=== PATIENT | female | born 1965 | race Caucasian/White ===

== ENCOUNTER 2016-11-16 22:53 | Emergency (ER) | payer OTHER ==
[2016-11-16 22:58] VITALS: BP 141/73; PULSE 73; TEMP 97.6; BMI 51.3
--- NOTE | 2016-11-16 23:42 | PDOC ---
History of Present Illness - General Chief Complaint: Migraine Headache Stated Complaint: MIGRAINE Time Seen by Provider: 11/16/16 23:34 History Source: Patient, Family (Daughter) Exam Limitations: Language Barrier - History of Present Illness Initial Comments: 11/17/16 00:41 51yo Female patient presents to ED c/o headache and blood to left eye, which began at 6am yesterday morning. She states she normally takes Tylenol for relief. Patient denies fever, n/v/d CP, Abd pain, diff breathing, rash, coughing , constipation, photophobia, neck pain, injury, or any other complaints at this time. Patient is concerned with blood to left eye. LNMP: Menopause. Severity: Yes: mild Associated Symptoms: denies: denies symptoms, confusion, fatigue, fever/chills, insomnia, loss of consciousness, muscle spasms, nausea/vomiting, numbness in legs/feet, paresthesia, ringing in ears, seizures, sleepy, slurred speech, tingling in legs/feet, trouble walking, vision changes, weakness, other Past History - Travel Close contact w/someone who was outside of country & ill: No - Past Medical History Allergies/Adverse Reactions: Allergies Allergy/AdvReac Type Severity Reaction Status Date / Time aspirin Allergy Mild Swelling Verified 11/16/16 22:55 Penicillins Allergy Mild Swelling Verified 11/16/16 22:55 Home Medications: Ambulatory Orders Butalb/Acetaminophen/Caffeine [Fioricet 50-300-40 mg Capsule] 1 - 2 each PO Q4H PRN #18 capsule 11/17/16 Thyroid Disease: No - Immunization History Immunization Up to Date: Yes - Psycho/Social/Smoking Cessation Hx Anxiety: No Suicidal Ideation: No Smoking Status: No Smoking History: Never smoked Have you smoked in the past 12 months: No Number of Cigarettes Smoked Daily: 0 Information on smoking cessation initiated: No Hx Alcohol Use: No Drug/Substance Use Hx: No Substance Use Type: None Hx Substance Use Treatment: No Neuro Specific PMHX - Complaint Specific PMHX Glaucoma: No Herniated Disk: No Laminectomy: No Migraine: Yes Multiple Sclerosis: No Neuropathy: No TIA: No Review of Systems - Review of Systems Able to Perform ROS?: Yes Is the patient limited Korean proficient: No Constitutional: No: Chills, Fever HEENTM: No: Eye Pain, Blurred Vision, Double Vision, Nose Congestion Respiratory: No: Cough, Orthopnea, Shortness of Breath, Stridor, Wheezing Cardiac (ROS): No: Chest Pain, Edema, Lightheadedness, Palpitations ABD/GI: No: Constipated, Diarrhea, Nausea, Poor Appetite, Poor Fluid Intake, Rectal Bleeding, Vomiting : No: Burning, Dysuria, Frequency, Flank Pain, Hematuria, Pain Musculoskeletal: No: Back Pain Integumentary: No: Dryness, Erythema, Rash Neurological: Yes: Headache. No: Numbness, Paresthesia, Seizure, Tingling, Tremors, Weakness, Unsteady Gait, Ataxia All Other Systems: Reviewed and Negative *Physical Exam - Vital Signs Last Vital Signs Temp Pulse Resp BP Pulse Ox 97.6 F 73 14 141/73 100 11/16/16 22:56 11/16/16 22:56 11/16/16 22:56 11/16/16 22:56 11/16/16 22:56 - Physical Exam General Appearance: Yes: Nourished, Appropriately Dressed. No: Apparent Distress, Mild Distress, Moderate Distress HEENT: positive: EOMI, LISET, Normal ENT Inspection, Normal Voice, Symmetrical, TMs Normal, Pharynx Normal, Other (patch of blood noted to left eye. No active bleeding.). negative: Nasal Congestion, Rhinorrhea, Sinus Tenderness, Orbits, TM Bulging, TM Dull, TM Erythema Neck: positive: Trachea midline, Supple. negative: Decreased range of motion, Lymphadenopathy (R), Lymphadenopathy (L) Respiratory/Chest: positive: Lungs Clear, Normal Breath Sounds. negative: Respiratory Distress, Accessory Muscle Use, Labored Respiration, Rapid RR Cardiovascular: positive: Regular Rhythm, Regular Rate Gastrointestinal/Abdominal: positive: Normal Bowel Sounds, Flat. negative: Distended, Guarding, Rebound, Tenderness Musculoskeletal: positive: Normal Inspection. negative: CVA Tenderness Extremity: positive: Normal Capillary Refill, Normal Inspection, Normal Range of Motion, Pelvis Stable. negative: Pedal Edema, Swelling, Calf Tenderness Integumentary: positive: Normal Color, Dry, Warm. negative: Erythema, Hives, Rash, Swelling Neurologic: positive: repairer hairspring II-XII NML intact, Fully Oriented, Normal Response, Motor Strength 5/5 ED Treatment Course - LABORATORY CBC & Chemistry Diagram: 11/16/16 23:55 11/16/16 23:55 *DC/Admit/Observation/Transfer Diagnosis at time of Disposition: Subconjunctival bleed Qualifiers: Laterality: left Qualified Code(s): H11.32 - Conjunctival hemorrhage, left eye Head ache Qualifiers: Headache type: tension-type Headache chronicity pattern: episodic headache Intractability: not intractable Qualified Code(s): G44.219 - Episodic tension- type headache, not intractable - Discharge Dispostion Disposition: HOME Condition at time of disposition: Improved Admit: No - Prescriptions Prescriptions: Butalb/Acetaminophen/Caffeine [Fioricet 50-300-40 mg Capsule] 1 - 2 each PO Q4H PRN #18 capsule PRN Reason: Severe Headache - Referrals Referrals: Sharona Cerda [Primary Care Provider] - - Patient Instructions Printed Discharge Instructions: DI for Headache, DI for Subconjunctival Hemorrhage Additional Instructions: FOLLOW UP WITH DR. ROBISON (OPHTHALMOLOGY) REGARDING BLOOD IN EYE. THIS IS A BENIGN CONDITION AND WILL GO AWAY ON ITS OWN. TRY NOT TO COUGH, SNEEZE, BEAR- DOWN WHEN USING BATHROOM, OR ANY THING THAT WILL CAUSE PRESSURE TO EYES. RETURN IF SYMPTOMS WORSEN OR ANY CONCERNS FOR FURTHER EVALUATION. FIORICET FOR HEADACHE PRESCRIBED. Print Language: IRISH
[2016-11-17 00:14] LABS: BASOPHIL 0.7 % (0-2.0); EOSINOPHIL 2.1 % (0-4.5); MCH 27.5 pg (25.7-33.7); MCHC 33.7 g/dl (32.0-36.0); MEAN CELL VOLUME 81.6 fl (80-96); MEAN PLT VOLUME 8.7 fl (7.5-11.1); NEUTROPHILS 61.8 % (42.8-82.8); PLATELET COUNT 194 K/MM3 (134-434); RDW 14.1 % (11.6-15.6); WHITE BLOOD COUNT 6.6 K/mm3 (4.0-10.0)
[2016-11-17 00:28] LABS: URINE APPEARANCE CLEAR; URINE BILIRUBIN NEGATIVE (NEGATIVE); URINE BLOOD NEGATIVE (NEGATIVE); URINE COLOR STRAW; URINE GLUCOSE (UA) NEGATIVE (NEGATIVE); URINE KETONE NEGATIVE (NEGATIVE); URINE LEUK ESTERASE NEGATIVE (NEGATIVE); URINE NITRITE NEGATIVE (NEGATIVE); URINE PROTEIN NEGATIVE (NEGATIVE); URINE UROBILINOGEN NEGATIVE E.U./dl (0.2-1.0)
[2016-11-17 00:43] LABS: CALCIUM 8.5 mg/dL (8.5-10.1); CREATININE 1.1 mg/dL (0.55-1.02)
== END 2016-11-17 02:09 | disposition home or self-care (01) ==
LOC: JER 22:53
DX: G44.219 Episodic tension-type headache, not intractable (principal); H11.32 Conjunctival hemorrhage, left eye
CPT/HCPCS: 36415; 70450-TC; 80048; 81003; 84703; 85025; 99281-25

== ENCOUNTER 2017-01-20 08:27 | Day surgery (SDC) | payer OTHER ==
[2017-01-19 14:13] VITALS: BMI 27.4
[2017-01-20] MEDS ORDERED: LIDOCAINE HCL/PF 2% SDV 5ML VIAL ONE (09:46)
[2017-01-20] MEDS ORDERED: PROPOFOL 20 ML ONE ×3 (09:47)
[2017-01-20 10:36] VITALS: TEMP 97.4
[2017-01-20 11:32] VITALS: BP 118/60; PULSE 78
== END 2017-01-20 11:20 | disposition home or self-care (01) ==
LOC: JASU-ENDO 08:27
PROVIDERS: ATTEND Internal Medicine Gastroenterology
PROC: 0DJD8ZZ Inspection of Lower Intestinal Tract, Via Natural or Artificial Opening Endoscopic (ICD-10-PCS; principal; 2017-01-20 08:30)
DX: Z12.11 Encounter for screening for malignant neoplasm of colon (principal)

== ENCOUNTER 2019-11-07 11:24 | Emergency (ER) | payer OTHER ==
[2019-11-07 11:46] VITALS: BP 145/63; PULSE 75; TEMP 97.8; BMI 26.6
[2019-11-07] MEDS ORDERED: METOCLOPRAMIDE HCL INJECTION 10 MG/2 ML VIAL IVPB ONE (12:09)
[2019-11-07] MEDS ORDERED: SODIUM CHLORIDE 1,000 ML IV STA (12:10)
[2019-11-07] MEDS ORDERED: SUMAtriptan SUCCINATE 25 MG TABLET PO ONE (12:12)
--- NOTE | 2019-11-07 12:15 | PDOC ---
History of Present Illness - General History Source: Patient Exam Limitations: Clinical Condition - History of Present Illness Initial Comments: 11/07/19 12:14 Patient with past medical history of hypertension and migraines presented with complaint of 3-day history of elevated blood pressure and headache with blurry vision for 3 days. Patient reports she has been forgetting to take her blood pressure medication. Patient is supposed to be taking amlodipine 5 mg daily. Patient report taking blood pressure medication this morning. Patient reported blood pressure was 170s over 110s prior to taking medication. Denies nausea, vomiting, dizziness, chest pain, shortness of breath, fever or chills. Report taking OTC Tylenol 3 tablets for headache 3 hours ago. Denies any other symptoms Timing/Duration: reports: other (3 days) Associated Symptoms: reports: denies symptoms. denies: confusion, fever/chills , loss of consciousness, seizures, sleepy, slurred speech, weakness <Phoenix Yarbrough - Last Filed: 11/07/19 14:17> <Toni Conn - Last Filed: 11/07/19 16:39> - General Chief Complaint: Headache Stated Complaint: HYPERTENSION Time Seen by Provider: 11/07/19 11:59 Past History - Past Medical History Anemia: No Asthma: No Cancer: No Cardiac Disorders: No CVA: No COPD: No CHF: No Dementia: No Diabetes: No GI Disorders: No Disorders: No HTN: Yes Hypercholesterolemia: No Liver Disease: No Seizures: No Thyroid Disease: No - Surgical History Abdominal Surgery: No Appendectomy: No Cardiac Surgery: No Cholecystectomy: No Lung Surgery: No Neurologic Surgery: No Orthopedic Surgery: No - Immunization History Immunization Up to Date: Yes - Psycho Social/Smoking Cessation Hx Smoking Status: No Smoking History: Never smoked Have you smoked in the past 12 months: No Number of Cigarettes Smoked Daily: 0 Hx Alcohol Use: No Drug/Substance Use Hx: No Substance Use Type: None Hx Substance Use Treatment: No <Phoenix Yarbrough - Last Filed: 11/07/19 14:17> <Toni Conn - Last Filed: 11/07/19 16:39> - Past Medical History Allergies/Adverse Reactions: Allergies Allergy/AdvReac Type Severity Reaction Status Date / Time aspirin Allergy Mild Swelling Verified 11/07/19 11:43 Penicillins Allergy Mild Swelling Verified 11/07/19 11:43 Home Medications: Ambulatory Orders Acetaminophen [Tylenol] 325 mg PO PRN 01/20/17 Butalb/Acetaminophen/Caffeine [Fioricet 50-300-40 mg Capsule] 1 each PO Q6H PRN #20 capsule 11/07/19 Neuro Specific PMHX - Complaint Specific PMHX Glaucoma: No Herniated Disk: No Laminectomy: No Migraine: Yes Multiple Sclerosis: No TIA: No <Phoenix Yarbrough - Last Filed: 11/07/19 14:17> Review of Systems - Review of Systems Able to Perform ROS?: Yes Is the patient limited [place] proficient: No Constitutional: No: Chills, Fever, Malaise HEENTM: No: Symptoms Reported, See HPI, Eye Pain, Blurred Vision, Tearing, Recent change in vision, Double Vision, Cataracts, Ear Pain, Ocular Prothesis, Ear Discharge, Nose Pain, Nose Congestion, Tinnitus, Nose Bleeding, Hearing Loss , Throat Pain, Throat Swelling, Mouth Pain, Dental Problems, Difficulty Swallowing, Mouth Swelling, Other Respiratory: No: Symptoms reported, See HPI, Cough, Orthopnea, Shortness of Breath, SOB with Exertion, SOB at Rest, Stridor, Wheezing, Productive cough, Hemoptysis, Other Cardiac (ROS): No: Symptoms Reported, See HPI, Chest Pain, Edema, Irregular Heart Rate, Lightheadedness, Palpitations, Syncope, Chest Tightness, Other ABD/GI: No: Symptoms Reported, See HPI, Abd. Pain w/ defecation, Blood Streaked Bowels, Constipated, Diarrhea, Difficulty Swallowing, Nausea, Poor Appetite, Rectal Bleeding, Vomiting, Abdominal cramping : No: Frequency, Incontinence, Urgency Musculoskeletal: No: Symptoms Reported, Muscle Pain Integumentary: No: Symptoms Reported Neurological: Yes: Symptoms reported, See HPI, Headache. No: Pre-Existing Deficit, Tingling, Weakness, Unsteady Gait, Dizziness All Other Systems: Reviewed and Negative <Phoenix Yarbrough - Last Filed: 11/07/19 14:17> *Physical Exam - Vital Signs Last Vital Signs Temp Pulse Resp BP Pulse Ox 97.8 F 75 18 145/63 100 11/07/19 11:43 11/07/19 11:43 11/07/19 11:43 11/07/19 11:43 11/07/19 11:43 - Physical Exam 11/07/19 12:43 GENERAL: Well developed, well nourished. Awake and alert. No acute distress. HEENT: Normocephalic, atraumatic. PERRLA, EOMI. No conjunctival pallor. Sclera are non- icteric. Moist mucous membranes. Oropharynx is clear. NECK: Supple. Full ROM. No JVD. Carotid pulses 2+ and symmetric, without bruits. No thyromegaly. No lymphadenopathy. CARDIOVASCULAR: Regular rate and rhythm. No murmurs, rubs, or gallops. Distal pulses are 2+ and symmetric. PULMONARY: No evidence of respiratory distress. Lungs clear to auscultation bilaterally. No wheezing, rales or rhonchi. ABDOMINAL: Soft. Non-tender. Non-distended. No rebound or guarding. No organomegaly. Normoactive bowel sounds. MUSCULOSKELETAL Normal range of motion at all joints. SKIN: Warm and dry. Normal capillary refill. No rashes. No jaundice. NEUROLOGICAL: Alert, awake, appropriate. Cranial nerves 2-12 intact. No deficits to light touch in face, upper extremities and lower extremities. No motor deficits in the in face, upper extremities and lower extremities. Normoreflexic in the upper and lower extremities. Normal speech. Gait is normal without ataxia. PSYCHIATRIC: Cooperative. Good eye contact. Appropriate mood and affect. General Appearance: Yes: Nourished, Appropriately Dressed. No: Apparent Distress <Phoenix Yarbrough - Last Filed: 11/07/19 14:17> - Vital Signs Last Vital Signs Temp Pulse Resp BP Pulse Ox 97.8 F 75 18 145/63 100 11/07/19 11:43 11/07/19 11:43 11/07/19 11:43 11/07/19 11:43 11/07/19 11:43 <Toni Conn - Last Filed: 11/07/19 16:39> ED Treatment Course - Medications Given in the ED: ED Medications Discontinued Medications Generic Name Dose Route Start Last Admin Trade Name Freq PRN Reason Stop Dose Admin Diphenhydramine HCl 25 mg 11/07/19 12:09 11/07/19 13:01 Benadryl Injection - IVPB 11/07/19 12:10 25 mg ONCE ONE Administration Sodium Chloride 1,000 mls @ 1,000 mls/hr 11/07/19 12:10 11/07/19 13:01 Normal Saline - IV 11/07/19 13:09 1,000 mls/hr ASDIR STA Administration Metoclopramide HCl 10 mg 11/07/19 12:09 11/07/19 13:01 Reglan Injection - IVPB 11/07/19 12:10 10 mg ONCE ONE Administration Sumatriptan Succinate 25 mg 11/07/19 12:12 11/07/19 13:48 Imitrex - PO 11/07/19 12:13 25 mg ONCE ONE Administration <Toni Conn - Last Filed: 11/07/19 16:39> Medical Decision Making - Medical Decision Making 11/07/19 12:41 Patient with past medical history of hypertension and migraines presented with complaint of 3-day history of elevated blood pressure and headache with blurry vision for 3 days. Patient reports she has been forgetting to take her blood pressure medication. Patient is supposed to be taking amlodipine 5 mg daily. Patient report taking blood pressure medication this morning. Patient reported blood pressure was 170s over 110s prior to taking medication. Denies nausea, vomiting, dizziness, chest pain, shortness of breath, fever or chills. Report taking OTC Tylenol 3 tablets for headache 3 hours ago. Denies any other symptoms Clinical exam unremarkable with normal neuro exam. Lungs clear to auscultation bilateral and normal cardio exam. Blood pressure on presentation has improved from home blood pressure to 140s over 60s. Patient symptoms likely due to noncompliant with blood pressure medication exacerbating her migraine headaches. IV hydration with 1 L normal saline ordered to help with migraine. Reglan 10 mg IV and Benadryl 25 mg IV ordered for migraine. We will give a dose of Imitrex p.o. to see if it helps her symptoms. Reassess after 20 minutes 11/07/19 14:17 Patient reported complete resolve of headaches post Reglan, Benadryl and Imitrex. Patient symptoms likely caused by noncompliance with blood pressure medication exacerbating migraines. Patient stable for discharge of Fioricet PRN for headache and patient advised on the importance of compliance with blood pressure medication. Patient have a follow-up with the neurology in a few days for migraines. Patient stable for discharge <Phoenix Yarbrough - Last Filed: 11/07/19 14:17> - Medical Decision Making 11/07/19 16:39 I reviewed the case of the mid-level practitioner and was available for consultation while in the emergency department <Toni Conn - Last Filed: 11/07/19 16:39> Discharge - Discharge Information Problems reviewed: Yes - Admission No <Phoenix Yarbrough - Last Filed: 11/07/19 14:17> <Toni Conn - Last Filed: 11/07/19 16:39> - Discharge Information Clinical Impression/Diagnosis: Essential hypertension Migraine headache without aura Qualifiers: Status migrainosus presence: without status migrainosus Intractability: not intractable Qualified Code(s): G43.009 - Migraine without aura, not intractable , without status migrainosus Condition: Improved Disposition: HOME - Additional Discharge Information Prescriptions: Butalb/Acetaminophen/Caffeine [Fioricet 50-300-40 mg Capsule] 1 each PO Q6H PRN #20 capsule PRN Reason: headache - Patient Discharge Instructions Patient Printed Discharge Instructions: DI for Migraine Additional Instructions: Continue taking home blood pressure medication as prescribed. It is very important that you take blood pressure medication daily. Take prescribed medication as needed for headaches. Follow-up with neurologist as scheduled in a few days
[2019-11-07] MEDS ORDERED: METOCLOPRAMIDE HCL INJECTION 10 MG/2 ML VIAL ONE (12:49)
[2019-11-07] MEDS ORDERED: SUMAtriptan SUCCINATE 50 MG TABLET ONE (13:42)
== END 2019-11-07 14:24 | disposition home or self-care (01) ==
LOC: JER 11:24
PROC: 3E033GC Introduction of Other Therapeutic Substance into Peripheral Vein, Percutaneous Approach (ICD-10-PCS; principal; 2019-11-07)
PROC: 3E033GC Introduction of Other Therapeutic Substance into Peripheral Vein, Percutaneous Approach (ICD-10-PCS; 2019-11-07)
DX: I10 Essential (primary) hypertension (principal); G43.009 Migraine without aura, not intractable, without status migrainosus; Z88.0 Allergy status to penicillin; Z88.6 Allergy status to analgesic agent
CPT/HCPCS: 96374; 96375; 99282-25; J7030

== ENCOUNTER 2021-05-12 13:32 | Emergency (ER) | payer OTHER ==
[2021-05-12 13:39] VITALS: TEMP 97.8; BMI 26.6
[2021-05-12] MEDS ORDERED: ACETAMINOPHEN 325 MG TABLET (FP) PO ONE (14:32)
[2021-05-12] MEDS ORDERED: ACETAMINOPHEN 325 MG TABLET (FP) ONE (15:02)
[2021-05-12] MEDS ORDERED: PIPERACILLIN/TAZOB 3.375 GM 3.375 GM in DEXTROSE 5%-WATER - 50 ML IVPB ONE (15:22)
[2021-05-12] MEDS ORDERED: VANCOMYCIN 1 GM in D5W (PRE-DOCKED) 1,000 MG/250 ML IVPB ONE (15:24)
[2021-05-12 15:26] LABS: HEMATOCRIT 27.4 % (32.4-45.2); MCH 28.2 pg (25.7-33.7); MCHC 32.9 g/dl (32.0-36.0); MEAN CELL VOLUME 85.5 fl (80-96); PLATELET COUNT 231 10^3/uL (134-434); RDW 17.1 % (11.6-15.6); WHITE BLOOD COUNT 7.5 K/mm3 (4.0-10.0)
[2021-05-12 15:33] LABS: INR 1.2 (0.83-1.09); PROTHROMBIN TIME (PATIENT) 14.4 SEC (9.7-13.0)
[2021-05-12 15:36] LABS: ACTIVATED PTT 27.7 SECONDS (25.2-36.5)
[2021-05-12 15:38] LABS: CALCIUM 8.4 mg/dL (8.5-10.1)
[2021-05-12 15:39] LABS: ALBUMIN 2.9 g/dl (3.4-5.0); BLOOD UREA NITROGEN 12.1 mg/dL (7-18)
[2021-05-12 15:42] LABS: CREATININE 0.7 mg/dL (0.55-1.3)
[2021-05-12 15:43] LABS: BILIRUBIN,TOTAL 0.5 mg/dL (0.2-1)
[2021-05-12 15:44] LABS: TOT PROT 6.4 g/dl (6.4-8.2)
[2021-05-12] MEDS ORDERED: PIPERACILLIN/TAZOB 3.375 GM 3.375 GM/50 ML BAG IVPB ONE (15:47)
[2021-05-12 16:27] LABS: ERYTHROCYTE SEDIMENTATION RATE 67 mm/hr (0-30)
[2021-05-12] MEDS ORDERED: VANCOMYCIN 1 GRAM (PRE-DOCKED) 1,000 MG/250 ML BAG IVPB ONE (16:30)
[2021-05-12] MEDS ORDERED: morphine CARPU-JECT 2 MG/1 ML DISP.SYRIN IVPUSH ONE (19:13)
[2021-05-12] MEDS ORDERED: SODIUM CHLORIDE 0.9% 500 ML INFUS.BAG IV ONE (19:29)
[2021-05-12] MEDS ORDERED: morphine CARPU-JECT 2 MG/1 ML DISP.SYRIN IM ONE (19:34)
[2021-05-12 20:35] VITALS: BP 137/64; PULSE 96
== END 2021-05-12 20:30 | disposition short-term general hospital (02) ==
LOC: JER 13:32
PROC: 3E023NZ Introduction of Analgesics, Hypnotics, Sedatives into Muscle, Percutaneous Approach (ICD-10-PCS; principal; 2021-05-12)
PROC: 3E03329 Introduction of Other Anti-infective into Peripheral Vein, Percutaneous Approach (ICD-10-PCS; 2021-05-12)
PROC: 3E03329 Introduction of Other Anti-infective into Peripheral Vein, Percutaneous Approach (ICD-10-PCS; 2021-05-12)
DX: L02.416 Cutaneous abscess of left lower limb (principal)
CPT/HCPCS: 36415; 73701-TC-RT; 80053; 84703; 85027; 85610; 85651; 85730; 86140; 87040; 93005; 93010; 99285-25; C9803; Q9967; U0003; U0005

== ENCOUNTER 2022-11-30 10:54 | Emergency (ER) | payer OTHER ==
[2022-11-30 11:10] VITALS: BP 166/70; PULSE 87; RESP 18; TEMP 98.1
[2022-11-30] MEDS ORDERED: ACETAMINOPHEN 500 MG TABLET (FP) PO ONE (12:04)
[2022-11-30] MEDS ORDERED: ACETAMINOPHEN 500 MG TABLET (FP) ONE (12:06)
== END 2022-11-30 13:15 | disposition home or self-care (01) ==
LOC: JERFT 10:54 → JER 10:54 → JERFT 13:15
DX: G44.319 Acute post-traumatic headache, not intractable (principal); M25.512 Pain in left shoulder; M54.2 Cervicalgia; W18.2XXA Fall in (into) shower or empty bathtub, initial encounter
CPT/HCPCS: 70450-TC; 72125-TC; 73030-TC-LT-FY; 99285-25

== ENCOUNTER 2024-01-21 21:26 | Emergency (ER) | payer OTHER ==
[2024-01-21 21:59] VITALS: BP 170/80; PULSE 83; RESP 16; TEMP 99.2; BMI 27.4
[2024-01-21] MEDS ORDERED: ACETAMINOPHEN INJECTION 100 ML IVPB ONE (22:30)
[2024-01-21] MEDS: ACETAMINOPHEN 1000 MG/100 ML BAG IVPB ONE (22:32)
[2024-01-21 22:35] LABS: BASO % 0.6 % (0-2.0); EOS % 1.7 % (0-4.5); HEMATOCRIT 37.5 % (32.4-45.2); HEMOGLOBIN 12.7 GM/dL (10.7-15.3); LYMPH % 18.7 % (8-40); MCH 27.8 pg (25.7-33.7); MCHC 33.8 g/dl (32.0-36.0); MEAN CELL VOLUME 82.2 fl (80-96); MEAN PLT VOLUME 8.3 fl (7.5-11.1); PLATELET COUNT 190 10^3/uL (134-434); RBC 4.56 M/mm3 (3.60-5.2); RDW 14.1 % (11.6-15.6); WHITE BLOOD COUNT 8.9 K/mm3 (4.0-10.0)
[2024-01-21 22:54] LABS: POTASSIUM 3.7 mmol/L (3.5-5.1)
[2024-01-21 22:56] LABS: BLOOD UREA NITROGEN 14.3 mg/dL (7-18)
[2024-01-21 22:57] LABS: ALBUMIN 3.5 g/dl (3.4-5.0); MAGNESIUM 1.8 mg/dL (1.8-2.4)
[2024-01-21 23:00] LABS: CREATININE 0.6 mg/dL (0.55-1.3)
[2024-01-21 23:01] LABS: BILIRUBIN,TOTAL 0.4 mg/dL (0.2-1); TOT PROT 6.7 g/dl (6.4-8.2)
== END 2024-01-22 01:00 | disposition left against medical advice (07) ==
LOC: JER 21:26
PROC: 3E030NZ Introduction of Analgesics, Hypnotics, Sedatives into Peripheral Vein, Open Approach (ICD-10-PCS; principal; 2024-01-21)
DX: R07.9 Chest pain, unspecified (principal); Z20.822 Contact with and (suspected) exposure to COVID-19
CPT/HCPCS: 0241U-QW; 36415; 71046-TC-FY; 80053; 83735; 84484; 85025; 93005; 93010; 99285-25; J0131